=== PATIENT | male | born 2000 | race Caucasian/White ===

== ENCOUNTER → 2019-12-14 12:35 | Outpatient (BNVA) | payer BC, SELFPAY | PROVIDERS: Visit Provider Internal Medicine | DX: Z20.828 Contact with and (suspected) exposure to other viral communicable diseases (principal) | CPT/HCPCS: 87635 ==

== ENCOUNTER → 2020-01-28 11:49 | Outpatient (BNVA) | payer BC, SELFPAY | PROVIDERS: Visit Provider Nurse Practitioner Family | DX: J02.9 Acute pharyngitis, unspecified (principal); Z20.828 Contact with and (suspected) exposure to other viral communicable diseases | CPT/HCPCS: 87071; 87635; 87880 ==

== ENCOUNTER → 2020-02-24 10:44 | Outpatient (BNVA) | payer BC, SELFPAY | PROVIDERS: Visit Provider Nurse Practitioner Family | DX: M25.512 Pain in left shoulder (principal) | CPT/HCPCS: 73030 ==

== ENCOUNTER → 2020-11-03 10:20 | Outpatient (BNVA) | payer BC, SELFPAY | PROVIDERS: Visit Provider Nurse Practitioner | DX: R07.9 Chest pain, unspecified (principal) | CPT/HCPCS: 71046 ==

== ENCOUNTER 2020-11-03 11:29 | Emergency (ER) | payer SELFPAY ==
[2020-11-03 11:50] VITALS: BP 133/76; PULSE 83; RESP 20; TEMP 36.9; O2SAT 99; BMI 19.1
--- NOTE | 2020-11-03 12:05 | W.ED.CHESTPA ---
HPI - Chest Pain General: Chief Complaint: Chest Pain Stated Complaint: CHEST PAIN Time Seen by Provider: 11/03/20 11:58 History of Present Illness: HPI narrative: Patient arrived via ambulance from the clinic with complaint of chest pain is been going on for couple months. Says is been worse last few days. He had an appointment last week did not keep that came in for visit today. Says it is like burning needles been in the center of her chest to the right side for the last couple months. He thought originally it was a muscle pain. Says pain makes it hard to breathe. Did some breathing treatments at home with the family members albuterol said it did not help. 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 Says he did not have to wear a mask there. Patient does not smoke. Denies any recent illness fever chills nausea vomiting or other related problems. complaint: chest discomfort Onset (ago): month(s) Timing of current episode: episodic Quality: burning and other (Seuh-nmt-mahdyup in his lungs he said.) Relieving factors: nothing Associated symptoms: Reports dyspnea; Deny abdominal pain, fever(s), nausea or vomiting Treatment prior to arrival: none Review of Systems Const: Denies: fever(s), chills or body aches Eyes: Denies: change in vision or blurry vision ENMT: Denies: throat pain or nasal congestion Card: Reports: chest pain (Chest discomfort last couple months been worse last 2 weeks.); Denies: dyspnea on exertion Resp: Reports: dyspnea GI: Denies: abdominal pain, nausea or vomiting : Denies: difficulty urinating Musc: Denies: extremity pain Skin/Breast: Denies: rash Neuro: Denies: headache(s) Psych: Denies: anxiety or depression Gianfranco/Lymph: Denies: easy bruising PFS ED PFSH: Medical History (Updated 11/03/20 @ 13:24 by FRANCISCO Elias) No pertinent past medical history Surgical History (Updated 11/03/20 @ 11:01 by ZACK King) No pertinent past surgical history Family History Denies family history of Diabetes Lung disease Cancer Hypertension Social History Smoking and tobacco status: never smoked Quit status (tobacco): has quit using tobacco Year quit tobacco: 2020 Second hand smoke exposure: No Smoking risk assessment/counseling performed?: No Alcohol intake: never Desire information about alcohol rehabilitation?: No Counseling given: No Desire information about substance/drug rehabilitation?: No Counseling given: No Adopted: No Lives independently: Yes Household members: spouse and family Housing: House Marital status: Number of children: 2 Highest education level completed: High School Graduate service: No Current occupational status: employed Physical Exam Const: COMMON NORMALS: no acute distress, average body habitus and patient oriented x3 HENMT: COMMON NORMALS: normocephalic HEAD & SCALP: normal to inspection and normocephalic FACE & SINUS: normal facial exam Eye: COMMON NORMALS: conjunctivae normal GENERAL EYE: appearance normal, both eyes and all related structures CONJUNCTIVA: Yes conjunctivae normal Neck/C-Spine: COMMON NORMALS: no JVD Chest: COMMONS NORMALS: normal inspection of the chest Resp: COMMON NORMALS: normal respiratory effort and clear to auscultation bilaterally AUSCULTATION: clear to auscultation bilaterally Cardio: COMMON NORMALS: no JVD, regular rate and regular rhythm RATE: regular rate RHYTHM: regular rhythm GI: COMMON NORMALS: Normal to inspection, nondistended, normoactive bowel sounds present Extremity: COMMON NORMALS: normal to inspection and full ROM Neuro: COMMON NORMALS: patient oriented x3 Course Vital Signs: Vital signs: Vital Signs Temperature 98.4 F 11/03/20 11:50 Pulse Rate 71 11/03/20 14:06 Respiratory Rate 16 11/03/20 14:06 Blood Pressure 146/95 11/03/20 14:06 Pulse Oximetry 100 11/03/20 14:06 MDM - Chest Pain MDM Narrative: Medical decision making narrative: Patient toward the end the visit before labs are back steady when the leaves said no one cares about him no one is listening to him. Father is there now. Speaking with them seems like he is having some stress going on his life patient at first when he came in was talking full sentences but said he is having breathing problems and and pain with deep inspiration. After medicines took effect he had no more pain he was talking without problems I think that Ativan is noting little bit. But he was appropriate. Encourage patient follow-up primary care help find to me to help deal with stress in his life off work for a few days. Lab Data: Labs: Lab Results 11/03/20 11/03/20 11/03/20 Range/Units 12:28 12:28 12:28 WBC 8.3 (4.0-10.0) 10^3/ uL RBC 5.32 H (4.1-5.3) 10^6/u L Hgb 16.2 (11.7-16.6) g/dL Hct 48.6 (42.0-52.0) % MCV 91.4 (80-94) fl MCH 30.5 (28.0-34.0) pg MCHC 33.3 (30.0-36.0) g/dL RDW 12.2 (12.1-15.1) % Plt Count 333 (130-400) 10^3/c mm MPV 9.5 (7.4-10.4) fL Neut % (Auto) 72.2 % Lymph % (Auto) 16.7 % [place] % (Auto) 9.1 % Eos % (Auto) 1.1 % Baso % (Auto) 0.5 % Neut # (Auto) 6.00 (1.8-7.7) 10^3/u L Lymph # (Auto) 1.4 (0.8-4.8) 10^3/u L [place] # (Auto) 0.8 (0.2-0.9) 10^3/u L Eos # (Auto) 0.1 (0.0-0.8) 10^3/u L Baso # (Auto) 0.0 (0.0-0.1) 10^3/u L Nucleated RBC % (a uto) 0 % Nucleated RBCs # 0.0 /100WBC D-Dimer 0.31 (0-0.59) ug/mIFE U Sodium 138 (136-145) mmol/L Potassium 3.6 (3.5-5.1) mmol/L Chloride 103 (98-107) mmol/L Carbon Dioxide 23 (22-29) mmol/L Anion Gap 15.6 (5-19) BUN 9 (6-20) mg/dL Creatinine 0.9 (0.7-1.2) mg/dL GFR Calculation 105.5 (90-130) mL/min Glucose 98 (65-115) mg/dL Calculated Osmolal ity 285 (285-295) mOsm/k g Calcium 9.2 (8.5-10.5) mg/dL Total Bilirubin 1.2 (0.15-1.2) mg/dL AST 15 (0-40) U/L ALT 11 (0-41) U/L Alkaline Phosphata se 84 (40-130) IU/L Total Protein 7.1 (6.6-8.7) g/dL Albumin 4.7 (3.5-5.2) g/dL Globulin 2.4 (1.3-4.6) g/dL Discharge Plan Discharge Patient Disposition: Home Clinical Impression: Atypical chest pain, Anterior pleuritic pain, Anxiety, Stress reaction Condition: Stable Prescriptions: New Medrol (Kalin) 4 mg tablets,dose pack See Rx Instructions .ROUTE .COMPLEX Qty: 21 RF: 0 Xanax 0.25 mg tablet 0.125 mg PO TID PRN (Reason: anxiety) Qty: 10 RF: 0 Discharge Orders: Discharge ED (Routine); Ordered 11/03/20 Ordered By: Tre Medina Discharge Diet: Usual diet Discharge Activity: Increase activity as tolerated Patient Instructions: Pleurisy (ED), Stress (ED) Activity Restrictions/Additional Instructions: Follow-up with medical provider as directed. Take medications as prescribed. Return to the ER or your medical provider if condition worsens. Please read and understand discharge instructions. If any questions ask please. Coding Level of Care Code ED Machine Shop Instructor for Eric Fwd Exam Comprehensive
[2020-11-03 12:11] VITALS: BP 169/107; PULSE 60; RESP 22; O2SAT 99
--- NOTE | 2020-11-03 12:21 | ECG_ITS ---
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: : 2000 Requested By: Tre Medina Order Number: [id number] Samuel MD: KOBY RANDOLPH Measurements Intervals [place] Rate: 65 P: 2 [place]: 111 QRS: 74 QRSD: 84 T: 75 QT: 367 QTc: 384 Interpretive Statements SINUS RHYTHM WITH SHORT [place] INTERVAL WITH FREQUENT SUPRAVENTRICULAR PREMATURE COMPLEXES POSSIBLE RIGHT VENTRICULAR CONDUCTION DELAY [RSR (QR) IN V1/V2] MODERATE ST DEPRESSION [0.05+ mV ST DEPRESSION] No previous ECG available for comparison Electronically Signed On 11-03-2020 19:27:04 CDT by KOBY RANDOLPH [id number] f
[2020-11-03 12:36] VITALS: BP 162/108; PULSE 68; RESP 21; O2SAT 99
[2020-11-03] MEDS: LORazepam 1 mg Tablet PO (12:41)
[2020-11-03] MEDS: ketorolac 30 mg/mL INJ IVP (12:44)
[2020-11-03 12:45] VITALS: BP 155/90; PULSE 56; RESP 19; O2SAT 100
[2020-11-03 12:48] LABS: Basophils % 0.5 %; Eosinophils # 0.1 10^3/uL (0.0-0.8); Eosinophils % 1.1 %; Hematocrit 48.6 % (42.0-52.0); Hemoglobin 16.2 g/dL (11.7-16.6); Lymphocytes # 1.4 10^3/uL (0.8-4.8); Lymphocytes % 16.7 %; Mean Corpuscular HGB Conc 33.3 g/dL (30.0-36.0); Mean Corpuscular Hemoglobin 30.5 pg (28.0-34.0); Mean Corpuscular Volume 91.4 fl (80-94); Mean Platelet Volume 9.5 fL (7.4-10.4); Monocytes # 0.8 10^3/uL (0.2-0.9); Monocytes % 9.1 %; Neutrophils % 72.2 %; Nucleated Red Blood Cells % 0 %; Platelet Count 333 10^3/cmm (130-400); Red Blood Count 5.32 10^6/uL (4.1-5.3); Red Cell Distribution Width 12.2 % (12.1-15.1); White Blood Count 8.3 10^3/uL (4.0-10.0)
[2020-11-03 13:00] VITALS: BP 143/75; PULSE 78; RESP 21; O2SAT 100
[2020-11-03 13:00] LABS: D Dimer 0.31 ug/mIFEU (0-0.59)
[2020-11-03 13:15] LABS: Alanine Aminotransferase 11 U/L (0-41); Albumin Level 4.7 g/dL (3.5-5.2); Alkaline Phosphatase 84 IU/L (40-130); Anion Gap 15.6 (5-19); Aspartate Amino Transferase 15 U/L (0-40); Blood Urea Nitrogen 9 mg/dL (6-20); Calcium 9.2 mg/dL (8.5-10.5); Carbon Dioxide 23 mmol/L (22-29); Chloride 103 mmol/L (98-107); Globulin 2.4 g/dL (1.3-4.6); Glomerular Filtration Rate 105.5 mL/min (90-130); Glucose 98 mg/dL (65-115); Osmolality Calculated 285 mOsm/kg (285-295); Potassium 3.6 mmol/L (3.5-5.1); Sodium 138 mmol/L (136-145); Total Bilirubin 1.2 mg/dL (0.15-1.2); Total Protein 7.1 g/dL (6.6-8.7)
[2020-11-03 14:06] VITALS: BP 146/95; PULSE 71; RESP 16; O2SAT 100
== END 2020-11-03 14:07 | disposition home or self-care (01) ==
PROVIDERS: Emergency Provider Nurse Practitioner Family
DX: R07.89 Other chest pain (principal); R07.81 Pleurodynia; F41.9 Anxiety disorder, unspecified; F43.9 Reaction to severe stress, unspecified; Z87.891 Personal history of nicotine dependence
CPT/HCPCS: 80053; 85025; 85378; 93005; 96374; 96375; 99284; J1885; J2930

== ENCOUNTER 2021-02-05 12:51 | Emergency (ER) | payer BC, SELFPAY ==
[2021-02-05 13:00] VITALS: BP 121/74; PULSE 66; RESP 18; TEMP 36.8; O2SAT 99; BMI 21.8
[2021-02-05 13:13] VITALS: BP 132/77; PULSE 61; RESP 16; O2SAT 99
--- NOTE | 2021-02-05 13:37 | CTR_ITS ---
PROCEDURE INFORMATION: Exam: CT Chest With Contrast; Diagnostic Exam date and time: 02/05/2021 1:37 PM Age: 20 years old Clinical indication: Injury or trauma; Other: Fall out of tree stand; Generalized; Blunt trauma (contusions or hematomas) TECHNIQUE: Imaging protocol: Diagnostic computed tomography of the chest with contrast. Radiation optimization: All CT scans at this facility use at least one of these dose optimization techniques: automated exposure control; mA and/or kV adjustment per patient size (includes targeted exams where dose is matched to clinical indication); or iterative reconstruction. Contrast material: OMNI 300; Contrast volume: 95 ml; Contrast route: INTRAVENOUS (IV); COMPARISON: CR XR chest 1V portable [id number] 02/05/2021 1:44 PM RADIATION DOSE METRICS: Total DLP (mGy-cm): 1143.68 FINDINGS: Lungs: Unremarkable. No consolidation. No masses. Pleural spaces: Unremarkable. No pneumothorax. No pleural effusion. Heart: Unremarkable. No cardiomegaly. No pericardial effusion. Aorta: Unremarkable. No aortic aneurysm. Lymph nodes: Unremarkable. No enlarged lymph nodes. Bones/joints: Unremarkable. No acute fracture. Soft tissues: Unremarkable. IMPRESSION: No acute findings. PROCEDURE INFORMATION: Exam: CT Abdomen And Pelvis With Contrast Exam date and time: 02/05/2021 1:37 PM Age: 20 years old Clinical indication: Injury or trauma; Other: Fall out of tree stand; Generalized; Blunt trauma (contusions or hematomas) TECHNIQUE: Imaging protocol: Computed tomography of the abdomen and pelvis with contrast. Radiation optimization: All CT scans at this facility use at least one of these dose optimization techniques: automated exposure control; mA and/or kV adjustment per patient size (includes targeted exams where dose is matched to clinical indication); or iterative reconstruction. Contrast material: OMNI 300; Contrast volume: 95 ml; Contrast route: INTRAVENOUS (IV); COMPARISON: CR XR chest 1V portable [id number] 02/05/2021 1:44 PM RADIATION DOSE METRICS: Total DLP (mGy-cm): 1143.68 FINDINGS: Liver: Normal. No mass. Gallbladder and bile ducts: The gallbladder is contracted. Pancreas: Normal. No ductal dilation. Spleen: Normal. No splenomegaly. Adrenal glands: Normal. No mass. Kidneys and ureters: Normal. No hydronephrosis. Stomach and bowel: Unremarkable. No obstruction. No mucosal thickening. Appendix: No evidence of appendicitis. Intraperitoneal space: Unremarkable. No free air. No significant fluid collection. Vasculature: Unremarkable. No abdominal aortic aneurysm. Lymph nodes: Unremarkable. No enlarged lymph nodes. Urinary bladder: Unremarkable as visualized. Reproductive: Unremarkable as visualized. Bones/joints: Unremarkable. No acute fracture. Soft tissues: Unremarkable. CT/CT chest abd pel w con* IMPRESSION: There are no acute concerning abnormalities. Radiation Dose CTDIVOL = (mGy): DLP = 1143.68~1143.68 (mGy-cm)
--- NOTE | 2021-02-05 13:37 | CTR_ITS ---
PROCEDURE INFORMATION: Exam: CT Cervical Spine Without Contrast Exam date and time: 02/05/2021 1:37 PM Age: 20 years old Clinical indication: Injury or trauma; Other: Fall out of tree stand; Blunt trauma; Additional info: Neck pain TECHNIQUE: Imaging protocol: Computed tomography images of the cervical spine without contrast. Radiation optimization: All CT scans at this facility use at least one of these dose optimization techniques: automated exposure control; mA and/or kV adjustment per patient size (includes targeted exams where dose is matched to clinical indication); or iterative reconstruction. COMPARISON: CT head wo con* [id number] 02/05/2021 2:45 PM RADIATION DOSE METRICS: Total DLP (mGy-cm): 411.47 FINDINGS: Bones/joints: No acute fracture. Normal alignment. Discs/Spinal canal/Neural foramina: No significant spinal canal stenosis or neural foraminal narrowing. Lungs: Scarring is noted in the lung apices. Soft tissues: Unremarkable. CT/CT cervical spin wo con* [id number] IMPRESSION: No acute abnormality. Radiation Dose CTDIVOL = (mGy): DLP = 411.47 (mGy-cm)
--- NOTE | 2021-02-05 13:38 | CTR_ITS ---
PROCEDURE INFORMATION: Exam: CT Head Without Contrast Exam date and time: 02/05/2021 1:38 PM Age: 20 years old Clinical indication: Injury or trauma; Other: Fall out of tree stand; Blunt trauma (contusions or hematomas) TECHNIQUE: Imaging protocol: Computed tomography of the head without contrast. Radiation optimization: All CT scans at this facility use at least one of these dose optimization techniques: automated exposure control; mA and/or kV adjustment per patient size (includes targeted exams where dose is matched to clinical indication); or iterative reconstruction. COMPARISON: No relevant prior studies available. RADIATION DOSE METRICS: Total DLP (mGy-cm): 831 FINDINGS: Brain: No acute intracranial hemorrhage, cerebral edema, or midline shift. Cerebral ventricles: No hydrocephalus. Paranasal sinuses: There is no acute sinusitis. Mastoid air cells: Visualized mastoid air cells are well aerated. Orbital cavity: Unremarkable as visualized. Bones/joints: No acute fracture. Soft tissues: Unremarkable. CT/CT head wo con* [id number] IMPRESSION: No acute intracranial abnormality. Radiation Dose CTDIVOL = (mGy): DLP = 831 (mGy-cm)
--- NOTE | 2021-02-05 13:38 | ECG_ITS ---
[facility] Test Date: 2021-02-05 Pat Name: Bari Huston Department: Room: Gender: Male Manager Of Data: : 2000 Requested By: Joni Bird Order Number: [id number] Samuel MD: Melissa Newby M.D. Measurements Intervals [place] Rate: 52 P: 26 [place]: 118 QRS: 86 QRSD: 85 T: 83 QT: 409 QTc: 381 Interpretive Statements SINUS BRADYCARDIA WITH SHORT [place] INTERVAL Compared to ECG 11/03/2020 13:05:22 Sinus rhythm no longer present ST (T wave) deviation no longer present Electronically Signed On 02-06-2021 12:38:48 TOOLMAN by Melissa Newby M.D. [id number] f
--- NOTE | 2021-02-05 13:38 | XR_ITS ---
WS: [id number] Exam: XR chest 1V portable [id number] Date/Time of Exam: 02/05/2021 1:46 PM Reason For Exam: dyspnea/cough Comparison 11/03/2020. The lungs are hyperinflated and clear. Normal cardiomediastinal structures and regional bony elements . Monitoring leads superimpose the chest. XR/XR chest 1V portable [id number] IMPRESSION: 1. No acute cardiopulmonary finding. Hyperinflation.
[2021-02-05 14:05] LABS: Basophils # 0.1 10^3/uL (0.0-0.1); Basophils % 0.8 %; Eosinophils # 0.5 10^3/uL (0.0-0.8); Eosinophils % 5.7 %; Hematocrit 49.6 % (42.0-52.0); Hemoglobin 16.4 g/dL (11.7-16.6); Lymphocytes # 3.2 10^3/uL (0.8-4.8); Lymphocytes % 36.4 %; Mean Corpuscular HGB Conc 33.1 g/dL (30.0-36.0); Mean Corpuscular Hemoglobin 30.2 pg (28.0-34.0); Mean Corpuscular Volume 91.3 fl (80-94); Mean Platelet Volume 9.7 fL (7.4-10.4); Monocytes # 0.9 10^3/uL (0.2-0.9); Monocytes % 10.1 %; Neutrophils # 4.13 10^3/uL (1.8-7.7); Neutrophils % 46.9 %; Nucleated Red Blood Cells % 0 %; Platelet Count 348 10^3/cmm (130-400); Red Blood Count 5.43 10^6/uL (4.1-5.3); Red Cell Distribution Width 12.3 % (12.1-15.1); White Blood Count 8.8 10^3/uL (4.0-10.0)
--- NOTE | 2021-02-05 14:08 | W.ED.FALL ---
HPI - Fall General: Chief Complaint: Fall Stated Complaint: NECK/BACK PAIN S/P @15' FALL FROM TREE STAND TODAY Time Seen by Provider: 02/05/21 13:37 History of Present Illness: HPI Narrative: 20-year-old male presents to the emergency room complaining of headache with neck and back pain. Patient fell approximately 12 feet from a tree stand while hunting deer. Happened yesterday. He was worse today and was going to try to go to work. In the nurses notes that happened says it happened today however when talking to him and his they tell me it happened yesterday. He did not actually lose consciousness he is not had any hematuria no vomiting or diarrhea. Denies any abdominal pain. He states he felt like he had the wind knocked out of him but he never lost consciousness. MD complaint: fall Onset (ago): hour(s) Fall from: from height (distance) Fall witnessed: no Place fall occurred: other (Outdoors from a deer tree stand) Loss of consciousness: None Symptoms prior to fall: lightheadedness and dizziness Location of injury: neck Severity: moderate Quality: aching Associated symptoms-after fall: Reports difficulty walking, headache(s), lightheadedness, neck pain, numbness and weakness; Denies abdominal pain, chest pain, confusion, hematuria, short of breath or vertigo Review of Systems Const: Denies: fever(s), chills, body aches, change in appetite, fatigue or malaise ENMT: Denies: throat pain, ear or mastoid pain, nasal discharge or nasal congestion Card: Reports: lightheadedness; Denies: chest pain Resp: Denies: dyspnea, productive cough or non-productive cough GI: Denies: abdominal pain : Denies: hematuria Musc: Reports: neck pain Skin/Breast: Denies: rash or pruritus Neuro: Reports: headache(s) and difficulty walking; Denies: vertigo or confusion PFS ED PFSH: Medical History (Updated 02/05/21 @ 16:36 by Joni Buck DO) No pertinent past medical history Surgical History (Updated 11/03/20 @ 11:01 by ZACK King) No pertinent past surgical history Family History Denies family history of Diabetes Lung disease Cancer Hypertension Social History Smoking and tobacco status: never smoked Quit status (tobacco): has quit using tobacco Year quit tobacco: 2020 Second hand smoke exposure: No Smoking risk assessment/counseling performed?: No Alcohol intake: never Desire information about alcohol rehabilitation?: No Counseling given: No Desire information about substance/drug rehabilitation?: No Counseling given: No Adopted: No Lives independently: Yes Household members: spouse and family Housing: House Marital status: Number of children: 2 Highest education level completed: High School Graduate service: No Current occupational status: employed Physical Exam Const: COMMON NORMALS: no acute distress GENERAL APPEARANCE: cooperative and comfortable ORIENTATION/CONSCIOUSNESS: Yes awake, Yes oriented to person, Yes oriented to place and Yes oriented to time HENMT: COMMON NORMALS: normocephalic, atraumatic, hearing grossly normal bilaterally, external ears normal, EAC's normal, TM's normal bilaterally, Normal nasal mucous membranes and turbinates present, moist oral mucous membranes and oropharynx normal HEAD & SCALP: normocephalic and atraumatic NOSE: Normal nasal mucous membranes and turbinates present EXTERNAL EAR: Yes external ears normal EXTERNAL AUDITORY CANAL: EAC's normal TYMPANIC MEMBRANE: TM's normal bilaterally Eye: COMMON NORMALS: Equal, round and reactive pupils present, EOMs intact bilaterally, conjunctivae normal and no scleral icterus CONJUNCTIVA: Yes conjunctivae normal PUPIL: Yes Equal, round and reactive pupils present Neck/C-Spine: COMMON NORMALS: full ROM, no lymphadenopathy, supple and no JVD Resp: COMMON NORMALS: normal respiratory effort, No retractions, No use of accessory muscles and clear to auscultation bilaterally AUSCULTATION: clear to auscultation bilaterally Cardio: COMMON NORMALS: no JVD, regular rate, regular rhythm and No murmurs present (Cardio) RATE: regular rate RHYTHM: regular rhythm GI: COMMON NORMALS: Soft to palpation and No hepatosplenomegaly present AUSCULTATION: Yes normoactive bowel sounds PALPATION: Yes Soft to palpation, No Tenderness to palpation present (GI), No Guarding due to palpation present (GI) and Yes No hepatosplenomegaly present Extremity: COMMON NORMALS: normal to inspection, capillary refill normal, no clubbing, cyanosis or edema, no calf tenderness and no pedal edema Neuro: SENSORIUM/ORIENTATION: Yes oriented to person, Yes oriented to place and Yes oriented to time Skin: COMMON NORMALS: no rashes or lesions noted GENERAL SKIN EXAM: no rashes or lesions noted Course Vital Signs: Vital signs: Vital Signs Temperature 98.2 F 02/05/21 13:00 Pulse Rate 50 L 02/05/21 17:28 Respiratory Rate 14 02/05/21 17:28 Blood Pressure 94/57 02/05/21 17:28 Pulse Oximetry 100 02/05/21 17:28 MDM - Fall MDM Narrative: Medical decision making narrative: Reviewed labs and imaging. No fractures no significant abnormalities on CT. Discharge home diclofenac tizanidine to use as needed follow-up as needed Lab Data: Labs: Lab Results 02/05/21 02/05/21 13:16 13:16 WBC 8.8 10^3/uL 10^3/ uL (4.0-10.0) RBC 5.43 10^6/uL H 10 ^6/uL (4.1-5.3) Hgb 16.4 g/dL g/dL (11.7-16.6) Hct 49.6 % % (42.0-52.0) MCV 91.3 fl fl (80-94) MCH 30.2 pg pg (28.0-34.0) MCHC 33.1 g/dL g/dL (30.0-36.0) RDW 12.3 % % (12.1-15.1) Plt Count 348 10^3/cmm 10^3 /cmm (130-400) MPV 9.7 fL fL (7.4-10.4) Neut % (Auto) 46.9 % % Lymph % (Auto) 36.4 % % [place] % (Auto) 10.1 % % Eos % (Auto) 5.7 % % Baso % (Auto) 0.8 % % Neut # (Auto) 4.13 10^3/uL 10^3 /uL (1.8-7.7) Lymph # (Auto) 3.2 10^3/uL 10^3/ uL (0.8-4.8) [place] # (Auto) 0.9 10^3/uL 10^3/ uL (0.2-0.9) Eos # (Auto) 0.5 10^3/uL 10^3/ uL (0.0-0.8) Baso # (Auto) 0.1 10^3/uL 10^3/ uL (0.0-0.1) Nucleated RBC % (a uto) 0 % % Nucleated RBCs # 0.0 /100WBC /100W BC Sodium 139 mmol/L mmol/L (136-145) Potassium 3.8 mmol/L mmol/L (3.5-5.1) Chloride 102 mmol/L mmol/L (98-107) Carbon Dioxide 23 mmol/L mmol/L (22-29) Anion Gap 17.8 (5-19) BUN 11 mg/dL mg/dL (6-20) Creatinine 1.3 mg/dL H mg/dL (0.7-1.2) GFR Calculation 69.0 mL/min L mL/ min (90-130) Glucose 87 mg/dL mg/dL (65-115) Calculated Osmolal ity 287 mOsm/kg mOsm/ kg (285-295) Calcium 8.9 mg/dL mg/dL (8.5-10.5) Total Bilirubin 0.4 mg/dL mg/dL (0.15-1.2) AST 14 U/L U/L (0-40) ALT 11 U/L U/L (0-41) Alkaline Phosphata se 91 IU/L IU/L (40-130) Creatine Kinase 158 U/L U/L (39-308) Total Protein 7.6 g/dL g/dL (6.6-8.7) Albumin 4.6 g/dL g/dL (3.5-5.2) Globulin 3.0 g/dL g/dL (1.3-4.6) Discharge Plan Discharge Patient Disposition: Home Clinical Impression: Injury while hunting, Fall Condition: Stable Prescriptions: New diclofenac sodium 75 mg tablet,delayed release (DR/EC) 75 mg PO Q12H PRN (Reason: pain) Qty: 20 RF: 0 tizanidine 4 mg capsule 4 mg PO Q6H PRN (Reason: muscle spasticity) Qty: 20 RF: 0 No Action Tylenol Ex Str Rapid Release 500 mg Tablet 1,500 mg PO Q4H PRN (Reason: Pain) RF: 0 Discharge Orders: Discharge ED (Routine); Ordered 02/05/21 Ordered By: Joni Buck Discharge Diet: Usual diet Patient Instructions: Opioid Safety Coding Level of Care Code ED Marking Room Supervisor for Chg Fwd Exam Comprehensive
[2021-02-05 14:15] LABS: Alanine Aminotransferase 11 U/L (0-41); Albumin Level 4.6 g/dL (3.5-5.2); Alkaline Phosphatase 91 IU/L (40-130); Anion Gap 17.8 (5-19); Aspartate Amino Transferase 14 U/L (0-40); Blood Urea Nitrogen 11 mg/dL (6-20); Calcium 8.9 mg/dL (8.5-10.5); Carbon Dioxide 23 mmol/L (22-29); Chloride 102 mmol/L (98-107); Creatine Phosphokinase 158 U/L (39-308); Glucose 87 mg/dL (65-115); Osmolality Calculated 287 mOsm/kg (285-295); Potassium 3.8 mmol/L (3.5-5.1); Sodium 139 mmol/L (136-145); Total Bilirubin 0.4 mg/dL (0.15-1.2); Total Protein 7.6 g/dL (6.6-8.7)
[2021-02-05 15:03] VITALS: BP 113/66; PULSE 52; RESP 14; O2SAT 100
--- NOTE | 2021-02-05 15:07 | PC.NURSE ---
Reassessment Pt is supine in bed with his at bedside. Pt reports pain in his back starting at his shoulder blades radiating down to just above his hips. Pt states pain is a stabbing pain rated 7/10. Pt is also reporting a headache.
[2021-02-05] MEDS: iohexol 300 mg/mL 100 mL Btl IV (15:08)
[2021-02-05] MEDS: ondansetron 2 mg/ML SDV 2 mL 4 MG IVP (15:27)
[2021-02-05 15:31] VITALS: RESP 14; O2SAT 100
[2021-02-05] MEDS: morphine 4 mg/mL SDV 1 mL IVP (15:31)
[2021-02-05] MEDS: ketorolac 30 mg/mL INJ IVP (15:37)
[2021-02-05 17:28] VITALS: BP 94/57; PULSE 50; RESP 14; O2SAT 100
== END 2021-02-05 17:25 | disposition home or self-care (01) ==
PROVIDERS: Emergency Provider Family Medicine
DX: R51.9 Headache, unspecified (principal); M54.2 Cervicalgia; M54.9 Dorsalgia, unspecified; W14.XXXA Fall from tree, initial encounter; Y93.89 Activity, other specified
CPT/HCPCS: 70450; 71045; 71260; 72125; 74177; 80053; 82550; 85025; 93005; 96374; 96375; 99284; J1885; J2270; J2405; Q9967

== ENCOUNTER 2022-02-05 15:09 | Emergency (ER) | payer BC, SELFPAY ==
[2022-02-05 15:29] VITALS: BP 118/69; PULSE 87; RESP 18; TEMP 36.7; O2SAT 99
--- NOTE | 2022-02-05 16:23 | ED_ITS ---
HPI - Fever General: Chief Complaint: Fever Stated Complaint: N/V, Fever Time Seen by Provider: 02/05/22 16:19 Source: patient Mode of arrival: ambulatory History of Present Illness: 21-year-old male presents emergency room complai cody of sore throat fever myalgias nausea headache. For the last 3 days. He also has a little bit of nonproductive cough as well. No discoloration to urine. MD elicited complaint: fever Onset (ago): day(s) (3) Exacerbating factors: nothing Relieving factors: nothing Associated symptoms: Deny abdominal pain, flank pain, chills, chest pain, confusion, cough, diarrhea, dysuria, extremity pain, headache(s), myalgias, nasal congestion, nausea, night sweats, rash, rhinorrhea, short of breath, sinus pain, stiffness, sore throat, vomiting or weight loss Treatments prior to arrival fever: none Review of Systems Const: Reports: fever(s); Denies: chills or night sweats ENMT: Denies: nasal congestion or sinus pain Card: Denies: chest pain Resp: Reports: non-productive cough; Denies: dyspnea or productive cough GI: Denies: abdominal pain, nausea, vomiting or diarrhea : Denies: flank pain or dysuria Musc: Denies: neck pain, back pain or extremity pain Skin/Breast: Denies: rash or pruritus Neuro: Denies: headache(s) or confusion PFSH ED PFSH: Medical History (Updated 02/05/22 @ 17:04 by Joni Buck DO) No pertinent past medical history Surgical History (Updated 11/03/20 @ 11:01 by ZACK King) No pertinent past surgical history Family History Denies family history of Diabetes Lung disease Cancer Hypertension Social History Smoking and tobacco status: never smoked Quit status (tobacco): has quit using tobacco Year quit tobacco: 2019 Second hand smoke exposure: No Smoking risk assessment/counseling performed?: No Alcohol intake: never Desire information about alcohol rehabilitation?: No Counseling given: No Desire information about substance/drug rehabilitation?: No Counseling given: No Adopted: No Lives independently: Yes Household members: spouse and family Housing: House Marital status: Number of children: 2 Highest education level completed: High School Graduate service: No Current occupational status: employed Physical Exam Const: GENERAL APPEARANCE: cooperative and comfortable ORIENTATION/CONSCIOUSNESS: Yes awake, Yes oriented to person, Yes oriented to place and Yes oriented to time HENMT: COMMON NORMALS: normocephalic, atraumatic and hearing grossly normal bilaterally HEAD & SCALP: normocephalic and atraumatic THROAT: posterior oropharynx abnormal erythema and exudates Resp: COMMON NORMALS: normal respiratory effort, No retractions, No use of accessory muscles and clear to auscultation bilaterally AUSCULTATION: clear to auscultation bilaterally Cardio: COMMON NORMALS: regular rate, regular rhythm and No murmurs present (Cardio) RATE: regular rate RHYTHM: regular rhythm GI: COMMON NORMALS: Soft to palpation and No hepatosplenomegaly present AUSCULTATION: Yes normoactive bowel sounds PALPATION: Yes Soft to palpation, No Tenderness to palpation present (GI), No Guarding due to palpation present (GI) and Yes No hepatosplenomegaly present Extremity: COMMON NORMALS: normal to inspection, capillary refill normal, no clubbing, cyanosis or edema, no calf tenderness and no pedal edema Neuro: SENSORIUM/ORIENTATION: Yes oriented to person, Yes oriented to place and Yes oriented to time Skin: COMMON NORMALS: no rashes or lesions noted GENERAL SKIN EXAM: no rashes or lesions noted Course Vital Signs: Vital signs: Vital Signs Temperature 98.0 F 02/05/22 15:29 Pulse Rate 62 02/05/22 17:33 Respiratory Rate 16 02/05/22 17:33 Blood Pressure 118/69 02/05/22 15:29 Pulse Oximetry 99 02/05/22 17:33 MDM - Fever Medical Decision Making Physical exam and presentation consistent with strep pharyngitis treated with amoxicillin follow-up with primary care. Medical Records I reviewed the patient's medical records. Lab Data I reviewed the patient's lab results. Laboratory Results Nasal Influ A H1 2009 PCR Not detected (NOT DETECT) 02/05/22 16:42 Influenza A (H1) PCR Not detected (NOT DETECT) 02/05/22 16:42 Influenza A (H3) PCR Not detected (NOT DETECT) 02/05/22 16:42 Influenza Type A (PCR) Not detected (NOT DETECT) 02/05/22 16:42 Influenza Type B (PCR) Not detected (NOT DETECT) 02/05/22 16:42 Discharge Plan Discharge Patient Disposition: Home Clinical Impression: Strep pharyngitis Condition: Stable Prescriptions: New amoxicillin 875 mg tablet 875 mg PO BID Qty: 20 0RF No Action acetaminophen [Tylenol Ex Str Rapid Release] 500 mg Tablet 1,000 - 1,500 mg PO Q6H PRN (Reason: Pain) ibuprofen 200 mg Tablet 200 - 800 mg PO Q6H PRN (Reason: Pain) Discharge Orders: Discharge ED (Routine); Ordered 02/05/22 Ordered By: Joni Buck Discharge Diet: Advance as tolerated Discharge Activity: Increase activity as tolerated Patient Instructions: Opioid Safety, Pain Management Stand Alone Forms: Work/School Release Coding Level of Care Code ED [employer] 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
[2022-02-05 16:56] VITALS: PULSE 66; RESP 16; O2SAT 99
[2022-02-05] MEDS: lidocaine 1% INJ 20 mL MDV (mL) 2.1 ML IM (17:24)
[2022-02-05] MEDS: cefTRIAXone 1,000 mg SDV 1000 MG IM (17:25)
[2022-02-05 17:33] VITALS: PULSE 62; RESP 16; O2SAT 99
[2022-02-05 18:44] LABS: Influenza A Not Detected (NOT DETECT); Influenza A H1 Not Detected (NOT DETECT); Influenza A H1-2009 Not Detected (NOT DETECT); Influenza A H3 Not Detected (NOT DETECT); Influenza B Not Detected (NOT DETECT)
[2022-02-05 18:57] LABS: Results from Genmark
== END 2022-02-05 18:08 | disposition home or self-care (01) ==
PROVIDERS: Emergency Provider Family Medicine
DX: J02.0 Streptococcal pharyngitis (principal)
CPT/HCPCS: 87631; 96372; 99284; J0696